=== PATIENT | male | born 1955 | race Caucasian/White ===

== ENCOUNTER 2020-02-12 13:53 | Emergency (ER) | payer MEDICARE, OTHER, MEDICAID ==
[~2020-02-12] VITALS: Ht 157.5 cm; Wt 52.3 kg
[~2020-02-12 13:53] MED LIST: ACET325C3 PO; ASPI-1265 PO; ASPI1TAB2 PO; ATOR10TA70 PO; CALC355O3 PO; DESM0.2T29 PO; ERGO400C PO; GUAI200T5 PO; LACT-48; MIRT30TA3 PO; MUPI15CR12; OMEP40CA13 PO; RISP0.5T74 PO; SYN0.088T PO; TRAZ-251 PO
[2020-02-12 14:17] VITALS: BP 118/78
[2020-02-12] MEDS ORDERED: LIDOcaine 1% W/epiNEPHrine 1:200,000 10ml vial IJ ONE (14:50)
[2020-02-12] MEDS ORDERED: TETanus/Pertussis (Acell)/Diphther VAC/PF (Tdap-Adult) 0.5ml syringe IMVAC ONE (14:50)
[2020-02-12] MEDS ORDERED: LIDOcaine 1% w/epiNEPHrine 1:200,000 30ml vial IJ ONE (15:10)
== END 2020-02-12 16:30 | disposition home or self-care (01) ==
LOC: ER 13:54
DX: S91.312A Laceration without foreign body, left foot, initial encounter (principal); Z98.890 Other specified postprocedural states; Z88.2 Allergy status to sulfonamides; Z79.82 Long term (current) use of aspirin; Z79.899 Other long term (current) drug therapy; X58.XXXA Exposure to other specified factors, initial encounter; Y93.89 Activity, other specified; Y92.89 Other specified places as the place of occurrence of the external cause; Y99.8 Other external cause status
CPT/HCPCS: 12002; 90471; 90715; 99284

== ENCOUNTER 2022-03-13 08:37 | Emergency (ER) | payer MEDICARE, OTHER, MEDICAID ==
[~2022-03-13] VITALS: Ht 167.6 cm; Wt 104.0 kg
[~2022-03-13 08:37] MED LIST changes: -OMEP40CA13 PO; +OMEP40CA21 PO
[2022-03-13 10:29] LABS: BASOPHILS # (AUTO) 0.1 X10'3 (0-0.2); BASOPHILS % (AUTO) 0.8 % (0-1); EOSINOPHILS # (AUTO) 0.1 X10'3 (0-0.9); EOSINOPHILS % (AUTO) 0.6 % (0-6); HEMOGLOBIN 13.9 g/dl (14.0-17.9); LYMPHOCYTES # (AUTO) 1.8 X10'3 (1.1-4.8); LYMPHOCYTES % (AUTO) 13.1 % (21-51); MEAN CORPUSCULAR HEMOGLOBIN 29.8 PG (27.0-31.0); MEAN CORPUSCULAR VOLUME 90.3 FL (78-98); MEAN PLATELET VOLUME 7.2 FL (7.4-10.4); MONOCYTES # (AUTO) 1.2 X10'3 (0-0.9); MONOCYTES % (AUTO) 8.8 % (2-12); NEUTROPHILS # (AUTO) 10.7 X10'3 (1.8-7.7); NEUTROPHILS % (AUTO) 76.7 % (42-75); PLATELET COUNT 300 X10'3 (140-440); RED BLOOD COUNT 4.65 X10'6 (4.70-6.10); RED CELL DISTRIBUTION WIDTH 13.8 % (11.5-14.5); WHITE BLOOD COUNT 13.9 X10'3 (4.5-11.0)
[2022-03-13] MEDS ORDERED: CefTRIAXone/D5W-Rocephin 1gm 50 ML IV ONE (10:30)
[2022-03-13 10:34] LABS: CLARITY,URINE CLEAR (Clear); COLOR,URINE YELLOW (Yellow); GLUCOSE, URINE NEGATIVE (Neg); KETONES,URINE NEGATIVE (Neg); LEUKOCYTE ESTERASE ,URINE NEGATIVE (Neg); NITRITES, URINE NEGATIVE (Neg); OCCULT BLOOD,URINE NEGATIVE (Neg); PROTEIN,URINE NEGATIVE (Neg); UA COLLECTION TYPE STRAIGHT CATH; UROBILINOGEN,URINE 0.2 E.U/dL (0.2-1.0)
[2022-03-13 10:44] LABS: ALANINE AMINOTRANSFERASE 71 U/L (12-78); ALBUMIN 3.3 G/DL (3.4-5.0); ALBUMIN/GLOBULIN RATIO 1.2 (1.1-1.5); ALKALINE PHOSPHATASE 99 IU/L (46-116); ANION GAP 8 (8-16); ASPARTATE AMINO TRANSFERASE 38 U/L (10-37); BILIRUBIN,TOTAL 0.5 MG/DL (0.1-1.0); BLOOD UREA NITROGEN 17 MG/DL (7-18); BUN/CREATININE RATIO 17.2 (5.4-32.0); CHLORIDE 108 MMOL/L (99-107); CREATININE 0.99 MG/DL (0.60-1.10); GLUCOSE 95 MG/DL (70-104); MAGNESIUM 1.8 MG/DL (1.5-2.4); POTASSIUM 3.9 MMOL/L (3.5-5.1); SODIUM 141 MMOL/L (135-145); TOTAL CARBON DIOXIDE 24.8 MMOL/L (24-32); TOTAL PROTEIN 6.1 G/DL (6.4-8.2); eGFR 76 ML/MIN
[2022-03-13] MEDS ORDERED: normal saline 1000ML IV soln IV ONE (11:40)
[2022-03-13] MEDS ORDERED: AMOX-115 PO (13:52)
[2022-03-13 14:21] VITALS: BP 144/90
== END 2022-03-13 14:24 | disposition home or self-care (01) ==
LOC: ER 08:38
DX: J06.9 Acute upper respiratory infection, unspecified (principal); Z88.2 Allergy status to sulfonamides
CPT/HCPCS: 36415; 71045; 80053; 81003; 83605; 83735; 84145; 85025; 87040; 93005; 96365; 99285; J0696; J7030